=== PATIENT | male | born 1980 | race Caucasian/White ===

== ENCOUNTER 2017-06-11 18:10 | Observation (INO) | payer SELFPAY ==
[2017-06-11] VITALS (12 sets, daily range): BP systolic 129–172; BP diastolic 82–113; PULSE 56–109; RESP 10–28; TEMP 36.7–36.8; O2SAT 96–98; BMI 24.7; BMI 25.0; BMI 24.0
--- NOTE | 2017-06-11 16:36 | EKG12_ITS ---
Test Reason : Blood Pressure : / mmHG Vent. Rate : 094 BPM Atrial Rate : 094 BPM P-R Int : 128 ms QRS Dur : 088 ms QT Int : 362 ms P-R-T Axes : 062 261 053 degrees QTc Int : 452 ms Normal sinus rhythm Normal ECG Confirmed by NETO HERMOSILLO ([id number]), editor index [place]ON[place]QUE [place] ([id number]) on 06/14/2017 2:34:44 PM Referred By: MANDY Confirmed By:NETO HERMOSILLO
[2017-06-11] MEDS: Aspirin 81 MG TAB.CHEW 324 MG PO (16:40)
--- NOTE | 2017-06-11 16:40 | RAD_ITS ---
STUDY: X-RAY CHEST REASON FOR EXAM: Male, 37 years old. Chest pain. TECHNIQUE: Single AP portable view of the chest. COMPARISON: None. FINDINGS: Lungs are mildly hyperexpanded. There is no focal mass or infiltrate. There is no demonstrated pleural abnormality. Normal size heart. Normal mediastinum and mark. Normal visualized pulmonary arteries. Normal visualized aortic arch and descending thoracic aorta. The thoracic spine is obscured by the mediastinum. Normal visualized ribs, clavicles, and shoulders. There is no demonstrated abnormality of the visualized soft tissue structures of the upper abdomen. RAD/Chest 1 View (Portable) IMPRESSION: No acute cardiopulmonary disease. Electronically Signed: Ivan Thompson DO at 16:55 EDT Tel [phone], Service support ,
--- NOTE | 2017-06-11 17:07 | ED.RN ---
accidental 2nd account made
[2017-06-11 17:27] LABS: Absolute Lymphocyte Count 3.73 X10^3/ul (0.83-4.51); Absolute Neutrophil Count 5.8 X10^3/uL (2.0-7.7); Basophil# 0.03 X10^3/uL; Basophil% 0.3 % (0-1); Eosinophils% 0.9 % (0-5); Hematocrit 42.2 % (40-54); Hemoglobin 14.9 g/dl (13.0-16.5); Lymphocyte # 3.73 X10^3/ul (4.0); Mean Corp Hgb Conc 35.3 g/gl (32-36); Mean Corpuscular Hgb 34.3 pg (27.0-32.0); Mean Corpuscular Volume 97.2 fL (80-94); Mean Platelet Vol. 11.2 fl (6.2-12.0); Monocyte# 0.94 X10^3/uL; Monocyte% 8.8 % (0-10); Neutrophil # 5.83 X10^3/uL (2.7-7.7); Neutrophil % 54.8 % (47-70); Platelet Count 245 K/mm3 (150-450); RBC Distribution Width CV 13.1 % (11.6-14.6); RBC Distribution Width SD 45.9 fl (35.1-43.9); Red Blood Count 4.34 M/mm3 (4.6-6.2); White Blood Count 10.7 K/mm3 (4.4-11.0)
[2017-06-11 17:29] LABS: Anion Gap 10 (5-15); BUN 16 mg/dL (7-18); BUN/Creat Ratio 13.3 RATIO (10-20); Calcium,Total 8.7 mg/dL (8.5-10.1); Chloride 106 mmol/L (98-107); EST Glomerular Filtration Rate 73 mL/min (>60); Est Glom Filt Rate - Afr Amer 89 mL/min (>60); Estimated Creatinine Clearance 74.74 ml/min; Glucose 116 mg/dL (74-106); Potassium 3.4 mmol/L (3.5-5.1); Sodium Level 140 mmol/L (136-145)
[2017-06-11 17:43] LABS: POSITIVE COUNT NO; POSITIVE DIFFERENTIAL NO; POSITIVE MORPHOLOGY NO
--- NOTE | 2017-06-11 17:43 | ED.VISSUMM ---
- ER Visit Summary Date of Service: 06/11/17 Chief Complaint: Chest pressure with dyspnea and diaphoresis History of Present Illness: The patient is a 37 M for chest pressure yesterday after intercourse. The pressure lasted for approximately 1 hour. Was associated with dyspnea, nausea and diaphoresis. He had an episode today at work. He reports dyspnea on exertion for the past week. He has not had chest pain the past week. He presently is pain-free. He is a smoker. Father had [place] at the age of 49. He is on no medication. He denies fever, chills night sweats. He denies any ocular, visual or auditory symptoms. He denies any URI symptoms or H EENT symptoms. He denies cough, orthopnea or PND. Does complain of nausea otherwise GI is negative. He denies any urologic. He denies any neurologic symptoms. He denies leg pain, swelling discoloration or history of PE or DVT. He denies history of lack maroon stool. Physical Examination: Is an 37-year-old gentleman who appears in no obvious distress. As noted he is pain-free. Head is atraumatic normocephalic. Pupils are equal round reactive. Extraocular muscles are intact. TMs are pearly white with landmarks noted. Nares patent with no drainage. Posterior pharynx without erythema or exudate. Uvula is midline. There is no dysphonia or dysphasia. Trachea is midline. There is no stridor with auscultation of the neck. Heart is regular without murmur, gallop or rub. S1 and S2 are normal. Lungs are clear to auscultation with good movement of air bilaterally. Abdomen is soft and nontender. There is no guarding or peritoneal findings. There is no palpable pulsatile mass. There is no abdominal bruit. Dorsey sign is negative. Negative Rovsing sign. There is no evidence of inguinal or umbilical hernia. There is no asymmetry, swelling, discoloration, leg vein distention, palpable cords or tenderness along the distribution of the deep venous system. Neuro exam is nonfocal. Test Results: EKG was obtained per nurse protocol reveals a sinus rhythm rate of 97 and normal. Single view portable chest x-ray interpreted by me as negative for any acute pathology. BMP is my for glucose of 116. Troponin is less than 0.02. CBC is pending. Emergency Department Course and Treatment: Workup was undertaken to rule out cardiac etiology versus other etiology for patient's discomfort. Since he has exertional symptoms Dr. Palacios was contacted processing patient. He was treated with aspirin and nitroglycerin. Treatment Plan: Dr. Acosta to see, admit and evaluate as inpatient Disposition: 23 hour observation PCU Impression: Exertional chest pain History of tobacco use Elevated blood pressure in patient without hypertension This note was generated with ClickOn dictation software. It may contain incorrect words, spelling, and punctuation that were not noted in review of the chart prior to signing ED Disposition - Plan for ED Patient: Chief Complaint: Chest Pain Referrals: Care Physician,No Primary [Primary Care Provider] -
--- NOTE | 2017-06-11 18:13 | PCM.CONS.C ---
Reason for Consult Date of Consultation: 06/11/17 Reason for Consultation: Chest discomfort. History of Present Illness: The patient is a 37 year old M with no previous medical history who says that he experienced chest discomfort yesterday during an episode of intimate activity. He described his as a heaviness across his chest there was no radiation no nausea no diaphoresis no dizziness. He has not had any previous episodes similar to this and has not had exertional discomfort in the past. This was with an otherwise unfamiliar partner. Today he experienced similar discomfort got concerned and so came to the emergency room he was noted to be mildly hypertensive his EKG did not demonstrate any significant changes troponin was normal. The emergency room physician got concerned and so called me for possible evaluation and admission for unstable angina. He is currently chest pain-free. [] Past Medical History Allergies/Adverse Reactions: Allergies No Known Allergies Allergy (Verified 06/11/17 16:13) Home Medications: Ambulatory Orders Medication Instructions Recorded Albuterol IH (ProAir) [Proair Hfa 1 puff INHALATION PRN PRN 06/11/17 (SP)Vent Pts] Budesonide/Formoterol 160/4.5 2 puff INHALATION DAILY 06/11/17 [Symbicort 160/4.5 Mcg Inhaler (SP)] Surgical History: no surgical history - *Family History Paternal History Items: Heart Disease Smoking Status: Current every day smoker Alcohol: None Drugs: None Review of Systems - Review of Systems General: Denies: Fever, Night Sweats, Fatigue Cardiovascular: Reports: Chest Discomfort with Exertion, Shortness of Breath. Denies: Chest Discomfort, Orthopnea, PND, Peripheral Edema, Palpitations, Lightheadedness, Dizziness, Near Syncope, Syncope Respiratory: Denies: Cough, Sputum Production, Hemoptysis Gastrointestinal: Denies: Hematemesis, Hematochezia, Melena Genitourinary: Denies: Dysuria, Hematuria Skin: Denies: Rash Subjectve: Pleasant gentleman in no apparent distress. Objective: Vital Signs Temp Pulse Resp BP Pulse Ox 98.2 F 102 H 16 135/87 H 98 06/11/17 16:19 06/11/17 16:53 06/11/17 16:19 06/11/17 16:53 06/11/17 16:19 Oxygen Delivery Method Room Air Weight: 150 lb 2.157 oz Body Mass Index (BMI) 25.0 General: Awake, Alert, Oriented x 3 HEENT: PERRL, EOMI, Sclera Non Icteric Neck: Supple, Good ROM, No Lymph Node Enlargement Lungs: Clear to auscultation Cardiovascular: Regular Rhythm, Normal S1, Normal S2, No Murmurs, No Rubs, No Gallops Vascular: No Carotid Bruits, Normal Femoral Pulses, Normal Radial Pulses, Normal Dorsalis Pedal Pulse, Normal Posterior Tibial Pulses Abdomen: Bowel Sounds Present, Soft, Non Tender, No HSM, No Organomegaly Extremities: No Cyanosis, No Clubbing, No edema Neurological: No Focal Motor or Sensory Deficit 06/11/17 14:25: WBC 10.7, RBC 4.34 L, Hgb 14.9, Hct 42.2, MCV 97.2 H, MCH 34.3 H, MCHC 35.3, RDW 13.1, RDW Differential 45.9 H, Plt Count 245, MPV 11.2, Immature Gran % (Auto) 0.200, Neut % (Auto) 54.8, Lymph % (Auto) 35.0, Slope % (Auto) 8.8, Eos % (Auto) 0.9, Baso % (Auto) 0.3, Absolute Neuts (auto) 5.8, Total Counted Not Reportable 06/11/17 14:25: Sodium 140, Potassium 3.4 L, Chloride 106, Carbon Dioxide 24.0, Anion Gap 10, BUN 16, Creatinine 1.20, Est GFR (MDRD) Af Amer 89, Est GFR (MDRD) Non-Af 73, BUN/Creatinine Ratio 13.3, Glucose 116 H, Calcium 8.7, Troponin I < 0.02 Rhythm: EKG: Normal sinus rhythm with no acute changes Assessment/Plan 1. Exertional chest pain. He presents with chest discomfort with exertion. At this particular time he has no EKG changes and his cardiac enzymes are completely normal. My recommendation would be for him to continue observation on the telemetry unit serial cardiac enzymes will be obtained and an echocardiogram will also be obtained. Pending on the results of the blood work further recommendations will be made. If his cardiac enzymes are normal I would suggest we perform an exercise myocardial perfusion stress test and depending on the results further recommendations will be made. Thank you for allowing me to participate in the care of your patient. Please don't hesitate to call if any issues arise 2. Pre-hypertension. He appears to have pre-hypertension. My recommendation would be to him on lisinopril and monitor his blood pressure carefully. Further recommendations will be made depending on his response to the above. Thank you for allowing me to participate in the care of your patient. Please don't hesitate to call if any issues arise
--- NOTE | 2017-06-11 18:18 | CON.PCM_ITS ---
Reason for Consult Date of Consultation: 06/11/17 Reason for Consultation: Chest discomfort. History of Present Illness: The patient is a 37 year old M with no previous medical history who says that he experienced chest discomfort yesterday during an episode of intimate activity. He described his as a heaviness across his chest there was no radiation no nausea no diaphoresis no dizziness. He has not had any previous episodes similar to this and has not had exertional discomfort in the past. This was with an otherwise unfamiliar partner. Today he experienced similar discomfort got concerned and so came to the emergency room he was noted to be mildly hypertensive his EKG did not demonstrate any significant changes troponin was normal. The emergency room physician got concerned and so called me for possible evaluation and admission for unstable angina. He is currently chest pain-free. [] Past Medical History Allergies/Adverse Reactions: Allergies No Known Allergies Allergy (Verified 06/11/17 16:13) Home Medications: Ambulatory Orders Medication Instructions Recorded Albuterol IH (ProAir) [Proair Hfa 1 puff INHALATION PRN PRN 06/11/17 (SP)Vent Pts] Budesonide/Formoterol 160/4.5 2 puff INHALATION DAILY 06/11/17 [Symbicort 160/4.5 Mcg Inhaler (SP)] Surgical History: no surgical history - *Family History Paternal History Items: Heart Disease Smoking Status: Current every day smoker Alcohol: None Drugs: None Review of Systems - Review of Systems General: Denies: Fever, Night Sweats, Fatigue Cardiovascular: Reports: Chest Discomfort with Exertion, Shortness of Breath. Denies: Chest Discomfort, Orthopnea, PND, Peripheral Edema, Palpitations, Lightheadedness, Dizziness, Near Syncope, Syncope Respiratory: Denies: Cough, Sputum Production, Hemoptysis Gastrointestinal: Denies: Hematemesis, Hematochezia, Melena Genitourinary: Denies: Dysuria, Hematuria Skin: Denies: Rash Subjectve: Pleasant gentleman in no apparent distress. Objective: Vital Signs Temp Pulse Resp BP Pulse Ox 98.2 F 102 H 16 135/87 H 98 06/11/17 16:19 06/11/17 16:53 06/11/17 16:19 06/11/17 16:53 06/11/17 16:19 Oxygen Delivery Method Room Air Weight: 150 lb 2.157 oz Body Mass Index (BMI) 25.0 General: Awake, Alert, Oriented x 3 HEENT: PERRL, EOMI, Sclera Non Icteric Neck: Supple, Good ROM, No Lymph Node Enlargement Lungs: Clear to auscultation Cardiovascular: Regular Rhythm, Normal S1, Normal S2, No Murmurs, No Rubs, No Gallops Vascular: No Carotid Bruits, Normal Femoral Pulses, Normal Radial Pulses, Normal Dorsalis Pedal Pulse, Normal Posterior Tibial Pulses Abdomen: Bowel Sounds Present, Soft, Non Tender, No HSM, No Organomegaly Extremities: No Cyanosis, No Clubbing, No edema Neurological: No Focal Motor or Sensory Deficit 06/11/17 14:25: WBC 10.7, RBC 4.34 L, Hgb 14.9, Hct 42.2, MCV 97.2 H, MCH 34.3 H , MCHC 35.3, RDW 13.1, RDW Differential 45.9 H, Plt Count 245, MPV 11.2, Immature Gran % (Auto) 0.200, Neut % (Auto) 54.8, Lymph % (Auto) 35.0, [place] % ( Auto) 8.8, Eos % (Auto) 0.9, Baso % (Auto) 0.3, Absolute Neuts (auto) 5.8, Total Counted Not Reportable 06/11/17 14:25: Sodium 140, Potassium 3.4 L, Chloride 106, Carbon Dioxide 24.0, Anion Gap 10, BUN 16, Creatinine 1.20, Est GFR (MDRD) Af Amer 89, Est GFR (MDRD ) Non-Af 73, BUN/Creatinine Ratio 13.3, Glucose 116 H, Calcium 8.7, Troponin I < 0.02 Rhythm: EKG: Normal sinus rhythm with no acute changes Assessment/Plan 1. Exertional chest pain. He presents with chest discomfort with exertion. At this particular time he has no EKG changes and his cardiac enzymes are completely normal. My recommendation would be for him to continue observation on the telemetry unit serial cardiac enzymes will be obtained and an echocardiogram will also be obtained. Pending on the results of the blood work further recommendations will be made. If his cardiac enzymes are normal I would suggest we perform an exercise myocardial perfusion stress test and depending on the results further recommendations will be made. Thank you for allowing me to participate in the care of your patient. Please don't hesitate to call if any issues arise 2. Pre-hypertension. He appears to have pre-hypertension. My recommendation would be to him on lisinopril and monitor his blood pressure carefully. Further recommendations will be made depending on his response to the above. Thank you for allowing me to participate in the care of your patient. Please don't hesitate to call if any issues arise
[2017-06-11] MEDS: Clopidogrel Bisulfate 300 MG Tablet PO (21:22)
[2017-06-11] MEDS: Albuterol 2.5 MG/3 ML VIAL.NEB. INHALATION (23:01)
[2017-06-12 02:58] VITALS: PULSE 85
[2017-06-12 03:35] VITALS: BP 129/82; PULSE 61; RESP 16; TEMP 37.1; O2SAT 97
[2017-06-12 04:40] LABS: Absolute Lymphocyte Count 2.33 X10^3/ul (0.83-4.51); Absolute Neutrophil Count 4.7 X10^3/uL (2.0-7.7); Basophil# 0.02 X10^3/uL; Basophil% 0.2 % (0-1); Eosinophil# 0.09 X10^3/uL; Eosinophils% 1.1 % (0-5); Hematocrit 38.8 % (40-54); Hemoglobin 13.6 g/dl (13.0-16.5); Lymphocyte # 2.33 X10^3/ul (4.0); Lymphocyte % 29.1 % (19-41); Mean Corp Hgb Conc 35.1 g/gl (32-36); Mean Corpuscular Hgb 34.5 pg (27.0-32.0); Mean Corpuscular Volume 98.5 fL (80-94); Mean Platelet Vol. 10.8 fl (6.2-12.0); Monocyte# 0.86 X10^3/uL; Monocyte% 10.7 % (0-10); Neutrophil # 4.71 X10^3/uL (2.7-7.7); Neutrophil % 58.8 % (47-70); POSITIVE COUNT NO; POSITIVE DIFFERENTIAL NO; POSITIVE MORPHOLOGY NO; Platelet Count 208 K/mm3 (150-450); RBC Distribution Width SD 45.5 fl (35.1-43.9); Red Blood Count 3.94 M/mm3 (4.6-6.2)
[2017-06-12 04:41] LABS: Prothrombin Time (Protime)PT. 13.1 SECONDS (11.7-14.9)
[2017-06-12 04:42] LABS: Partial Thromboplast Time 24.5 Seconds (24.1-36.2)
[2017-06-12 05:31] LABS: Anion Gap 8 (5-15); BUN 12 mg/dL (7-18); Calcium,Total 8.5 mg/dL (8.5-10.1); Chloride 106 mmol/L (98-107); Cholesterol 167 mg/dL (200); Creatinine, Serum 0.92 mg/dL (0.70-1.30); EST Glomerular Filtration Rate 99 mL/min (>60); Est Glom Filt Rate - Afr Amer 120 mL/min (>60); Estimated Creatinine Clearance 97.49 ml/min; Glucose 103 mg/dL (74-106); High Density Lipoprotein 64 mg/dL; Sodium Level 140 mmol/L (136-145); Triglycerides 102 mg/dL; Very Low Density Lipoprotein 20 mg/dL (5-40)
--- NOTE | 2017-06-12 05:55 | EKG12_ITS ---
Test Reason : AM EKG Blood Pressure : / mmHG Vent. Rate : 063 BPM Atrial Rate : 063 BPM P-R Int : 134 ms QRS Dur : 092 ms QT Int : 440 ms P-R-T Axes : 063 -49 046 degrees QTc Int : 450 ms Normal sinus rhythm with sinus arrhythmia Abnormal ECG When compared with ECG of 11-JUN-2017 16:20, MANUAL COMPARISON REQUIRED, DATA IS UNCONFIRMED Confirmed by NETO HERMOSILLO ([id number]), index editor [place]ONIQUE [place] ([id number]) on 06/14/2017 3:11:06 PM Referred By: DR MICHAEL Confirmed By:NETO HERMOSILLO
[2017-06-12 06:08] VITALS: BP 129/79; PULSE 68; RESP 16; TEMP 37.2; O2SAT 96
[2017-06-12] MEDS: Lisinopril 5 MG Tablet PO (06:11)
[2017-06-12] MEDS: Aspirin E.C. 81 MG Tablet PO (06:11)
--- NOTE | 2017-06-12 08:58 | STRESSREP_ITS ---
Stress Test Report Exercise myocardial perfusion stress test. 37-year-old man with a history of chest pain. Stress protocol: Resting EKG demonstrates sinus bradycardia with a rate of 48 bpm normal intervals and noted resting blood pressure is 132/80 mmHg. The patient exercised according to the regular Jeremy protocol for total duration of 11 minutes completing 2 minutes into stage IV of the Jeremy protocol. The maximum heart rate attained was 166 bpm which was 89% maximum predicted heart rate the maximum workload attained was 13.4 metabolic equivalents. Patient maintained sinus rhythm throughout the recording. At rest there were no ST or T-wave changes noted suggest ischemia peak exercise upsloping ST changes only were noted with no meet the criteria for ischemia. No clinical angina was noted. The test was terminated due to leg fatigue. The resting blood pressure is 132/ 80 with a peak blood pressure 140/80 mmHg. Myocardial perfusion protocol. 11.6 mCi of technetium 99m sestamibi was injected at rest. The patient exercised according to regular Jeremy protocol for total duration of 11 minutes. At peak exercise 33.1 mCi of technetium 99m sestamibi was injected. Stress images were obtained stress and rest images were reconstructed and compared in the short axis vertical long and horizontal long axis. Gated images were also obtained. Perfusion SPECT analysis: Review of the stress images demonstrate normal uptake of tracer noted in all areas of the myocardium. The resting images similarly demonstrate normal uptake of tracer noted in all areas of the myocardium. No areas of reversibility are noted suggest ischemia no previous infarct is noted. Gated SPECT analysis: The gated ejection fraction is 78%. Conclusion: Normal exercise myocardial perfusion stress test at a high workload with no evidence of angina or ischemia. Preserved ejection fraction.
--- NOTE | 2017-06-12 09:03 | PN.CARD_ITS ---
Subjectve: Patient seen and evaluated. Had no issues overnight. Objective: Vital Signs Temp Pulse Resp BP Pulse Ox 98.9 F 68 16 129/79 H 96 06/12/17 06:08 06/12/17 06:08 06/12/17 06:08 06/12/17 06:08 06/12/17 06:08 Oxygen Flow Rate (L/min) 2 Oxygen Delivery Method Room Air Weight: 144 lb 2.917 oz Body Mass Index (BMI) 24.0 Intake and Output for Last 24 Hours 06/10/17 06/11/17 06/12/17 23:59 23:59 23:59 Intake Total 462 / 462 Balance 462 / 462 General: Awake, Alert, Oriented x 3 HEENT: PERRL, EOMI, Sclera Non Icteric Neck: Supple, Good ROM, No Lymph Node Enlargement Lungs: Clear to auscultation Cardiovascular: Regular Rhythm, Normal S1, Normal S2, No Murmurs, No Rubs, No Gallops Vascular: No Carotid Bruits, Normal Femoral Pulses, Normal Radial Pulses, Normal Dorsalis Pedal Pulse, Normal Posterior Tibial Pulses Abdomen: Bowel Sounds Present, Soft, Non Tender, No HSM, No Organomegaly Extremities: No Cyanosis, No Clubbing, No edema Neurological: No Focal Motor or Sensory Deficit 06/11/17 19:15: Troponin I < 0.02 06/11/17 22:56: Troponin I < 0.02 06/12/17 04:20: Sodium 140, Potassium 4.0, Chloride 106, Carbon Dioxide 26.0, Anion Gap 8, BUN 12, Creatinine 0.92, Est GFR (MDRD) Af Amer 120, Est GFR (MDRD ) Non-Af 99, BUN/Creatinine Ratio 13.0, Glucose 103, Calcium 8.5, Triglycerides 102, Cholesterol 167, LDL Cholesterol 83, VLDL Cholesterol 20, HDL Cholesterol 64 06/12/17 04:20: Troponin I < 0.02 06/12/17 04:20: WBC 8.0, RBC 3.94 L, Hgb 13.6, Hct 38.8 L, MCV 98.5 H, MCH 34.5 H, MCHC 35.1, RDW 13.0, RDW Differential 45.5 H, Plt Count 208, MPV 10.8, Immature Gran % (Auto) 0.100, Neut % (Auto) 58.8, Lymph % (Auto) 29.1, [place] % ( Auto) 10.7 H, Eos % (Auto) 1.1, Baso % (Auto) 0.2, Absolute Neuts (auto) 4.7, Total Counted Not Reportable 06/12/17 04:20: PT 13.1, INR 1.0, APTT 24.5 Rhythm: EKG: ECHO: Stress Test: Cardiac Cath: PCI: CT Surgery: Holter monitor: EPS: PPM: CXR: Chest CT Scan: Medical Necessity - Tobacco Use Smoking Status: Current every day smoker Assessment/Plan 1. Exertional chest pain. He presents with chest discomfort with exertion. He underwent stress testing this morning where he exercised 11 minutes without any evidence of chest pain. Nuclear images also did not demonstrate any evidence of ischemia. This portends a very low likelihood for coronary artery disease. My recommendation will be for him to be managed as an outpatient. 2. Pre-hypertension. He appears to have pre-hypertension. My recommendation would be to him on lisinopril and monitor his blood pressure carefully. Further recommendations will be made depending on his response to the above. Thank you for allowing me to participate in the care of your patient. Please don't hesitate to call if any issues arise. He will follow-up with his primary physician.
--- NOTE | 2017-06-12 09:03 | PCM.DC ---
You will use the following diet at home:: No restrictions Discharge Activity: Return to Normal Activity Return to work on:: 06/13/17 May resume sexual activity in: 1 week Allergies/Adverse Reactions: Allergies No Known Allergies Allergy (Verified 06/11/17 16:13) Medications to take at Discharge Albuterol IH (ProAir) [Proair Hfa (SP)Vent Pts] 1 puff INHALATION PRN PRN 06/11/17 Budesonide/Formoterol 160/4.5 [Symbicort 160/4.5 Mcg Inhaler (SP)] 1 puff INHALATION DAILY 06/11/17 Primary Care Physician: Care Physician,No Primary [Primary Care Provider] - Please Follow Up With: primary care for bp evaluation Proposed Discharge Date: 06/12/17
--- NOTE | 2017-06-12 09:06 | DCINST_ITS ---
You will use the following diet at home:: No restrictions Discharge Activity: Return to Normal Activity Return to work on:: 06/13/17 May resume sexual activity in: 1 week Allergies/Adverse Reactions: Allergies No Known Allergies Allergy (Verified 06/11/17 16:13) Medications to take at Discharge Albuterol IH (ProAir) [Proair Hfa (SP)Vent Pts] 1 puff INHALATION PRN PRN Budesonide/Formoterol 160/4.5 [Symbicort 160/4.5 Mcg Inhaler (SP)] 1 puff INHALATION DAILY 06/11/17 Primary Care Physician: Care Physician,No Primary [Primary Care Provider] - Please Follow Up With: primary care for bp evaluation Proposed Discharge Date: 06/12/17
[2017-06-12 10:06] VITALS: BP 120/72; PULSE 64; TEMP 36.8; O2SAT 97
--- NOTE | 2017-06-12 10:34 | CASEMGMT ---
Patient is self pay. SYBIL met with patient, introduced self and role at [facility]. Patient said he used to go to [facility]. SW gave him a packet for [employer], information on [facility]'s financial assistance program and application, information on [employer], prescription assistance programs for the 2 inhalers he is usually on, and a Medicaid application. Stacy HAMPTON MSW
== END 2017-06-12 09:04 | disposition home or self-care (01) ==
LOC: PCU 18:17
PROVIDERS: Admitting Provider Internal Medicine Cardiovascular Disease; Emergency Provider Emergency Medicine; Visit Provider Internal Medicine Cardiovascular Disease
DX: R07.89 Other chest pain (principal); R03.0 Elevated blood-pressure reading, without diagnosis of hypertension; R06.09 Other forms of dyspnea; F17.200 Nicotine dependence, unspecified, uncomplicated; Z79.51 Long term (current) use of inhaled steroids; R00.1 Bradycardia, unspecified
CPT/HCPCS: 36415; 71045; 78452; 80048; 80061; 84484; 85025; 85610; 85730; 93005; 93017; 94640; 99218; 99285; A9500; A4216; G0378

== ENCOUNTER 2017-12-13 14:05 | Emergency (ER) | payer SELFPAY ==
[2017-12-13 14:07] VITALS: BP 167/104; PULSE 105; RESP 18; TEMP 36.9; O2SAT 97; BMI 23.8
--- NOTE | 2017-12-13 14:43 | EKG12_ITS ---
Test Reason : ANXIETY Blood Pressure : / mmHG Vent. Rate : 087 BPM Atrial Rate : 087 BPM P-R Int : 140 ms QRS Dur : 084 ms QT Int : 368 ms P-R-T Axes : 040 -70 037 degrees QTc Int : 442 ms Normal sinus rhythm Left anterior fascicular block Abnormal ECG Confirmed by ALEC OWEN, WAYNE ([id number]), fan mail editor [place]ON[place] ([id number]) on 12/19/2017 9:12:55 AM Referred By: YURI Confirmed By:WAYNE MICHAEL MD
--- NOTE | 2017-12-13 15:00 | RAD_ITS ---
STUDY: X-RAY CHEST REASON FOR EXAM: Male, 37 years old. Cough. TECHNIQUE: PA and lateral views of the chest. COMPARISON: Comparison is made with prior study dated June 11, 2017. FINDINGS: Hyperinflation. Decreased bronchovascular markings in both lungs suggestive of a emphysematous changes. There is no demonstrated pleural abnormality. Normal size heart. Normal mediastinum and mark. Normal visualized pulmonary arteries. Normal visualized aortic arch and descending thoracic aorta. Normal visualized thoracic spine. Normal visualized ribs, clavicles, and shoulders. There is no demonstrated abnormality of the visualized soft tissue structures of the upper abdomen. RAD/Chest PA and Lateral IMPRESSION: Hyperinflation. Electronically Signed: Joe Boston MD at 15:31 EDT Tel [phone], Service support ,
[2017-12-13 15:08] LABS: Absolute Lymphocyte Count 2.49 X10^3/ul (0.83-4.51); Absolute Neutrophil Count 5.2 X10^3/uL (2.0-7.7); Basophil# 0.02 X10^3/uL; Basophil% 0.2 % (0-1); Eosinophil# 0.15 X10^3/uL; Eosinophils% 1.8 % (0-5); Hemoglobin 14.8 g/dl (13.0-16.5); Lymphocyte # 2.49 X10^3/ul (4.0); Lymphocyte % 29.2 % (19-41); Mean Corp Hgb Conc 34.4 g/gl (32-36); Mean Corpuscular Hgb 33.9 pg (27.0-32.0); Mean Corpuscular Volume 98.6 fL (80-94); Mean Platelet Vol. 10.2 fl (6.2-12.0); Monocyte# 0.67 X10^3/uL; Monocyte% 7.9 % (0-10); Neutrophil # 5.17 X10^3/uL (2.7-7.7); Neutrophil % 60.5 % (47-70); POSITIVE COUNT NO; POSITIVE DIFFERENTIAL NO; POSITIVE MORPHOLOGY NO; Platelet Count 192 K/mm3 (150-450); RBC Distribution Width CV 13.2 % (11.6-14.6); RBC Distribution Width SD 47.6 fl (35.1-43.9); Red Blood Count 4.36 M/mm3 (4.6-6.2); White Blood Count 8.5 K/mm3 (4.4-11.0)
[2017-12-13 15:21] LABS: Anion Gap 10 (5-15); BUN 12 mg/dL (7-18); BUN/Creat Ratio 10.9 RATIO (10-20); Calcium,Total 9.1 mg/dL (8.5-10.1); Chloride 103 mmol/L (98-107); EST Glomerular Filtration Rate 81 mL/min (>60); Est Glom Filt Rate - Afr Amer 98 mL/min (>60); Estimated Creatinine Clearance 81.53 ml/min; Glucose 121 mg/dL (74-106); Sodium Level 136 mmol/L (136-145)
[2017-12-13 15:24] VITALS: PULSE 88; RESP 16; O2SAT 98
--- NOTE | 2017-12-13 16:30 | ED.DCSUM_ITS ---
- ER Visit Summary Date of Service: 12/13/17 Chief Complaint: [Medication side effects, diarrhea] History of Present Illness: The patient is a 37 M [the presents with multiple complaints including diarrhea, chest pains, and anxiety. Patient is concerned that these symptoms are due to the fact that he was recently changed from Zoloft to BuSpar about 3 weeks ago. He did not like how the BuSpar made him feel so he started decreasing the dosage over the last week. He is only taking about half the prescribed dosage. He had some sharp pains on the left side of his chest several days ago that resolved and have not recurred. He also describes nonproductive cough and several loose stools. No DVT or PE history or risk factors. No cardiac history. His only cardiac risk factor is hypertension. He appears well and nontoxic. He has no other complaints.] Physical Examination: [General: The patient appears well and in no apparent distress. Patient is resting comfortably on cart. Skin: Warm, dry, no pallor noted. No rash. Head: Normocephalic, atraumatic Neck: Supple, nontender. Eye: PERRLA, EOMI ENT: Moist mucus membranes, pharynx within normal limits. Cardiovascular: Regular Rate and Rhythm, no gallups or rubs Respiratory: Patient is in no distress, no accessory muscle use, lungs are clear to auscultation, no wheezing, rales or rhonchi Musculoskeletal: normal ROM, no deformity, no tenderness, no swelling. 2+ radial and DP pulses symmetric. GI: No tenderness to palpation, no masses appreciated. No rebound, guarding, or rigidity noted. Neurological: A&O, normal strength and sensation. GCS 15. Psychiatric: Cooperative] Test Results: [Bloodwork overall unremarkable. EKG shows sinus rhythm with a rate of 87, no acute ischemic changes or arrhythmia. Normal intervals. No heart blocks. Two-view chest x-ray shows no acute process. ] Emergency Department Course and Treatment: [Patient remained stable throughout his stay in the emergency department. He is currently asymptomatic. EKG and chest x-ray showed no acute findings. Cardiac enzymes were negative, no evidence of cardiac etiology of his symptoms. His HEART Score is 1. He is PERC negative. I do not feel his presentation is consistent with ACS, PE, or dissection. He was advised to follow closely with his primary provider and return with any new or worsening symptoms. I instructed him to take his medications as prescribed and discuss the dosing with his primary provider. Patient verbalized understanding and is agreeable. Patient discharged home in stable condition.] Treatment Plan: [see above] Disposition: [discharge home] Impression: [Chest Pain, nonspecific - resolved, Diarrhea, Possible medication side effects] This note was generated with [employer] dictation software. It may contain incorrect words, spelling, and punctuation that were not noted in review of the chart prior to signing ED Disposition - Plan for ED Patient: Disposition: Home or Assisted Living Chief Complaint: General Illness Instructions: ED Chest Pain Atypical Unkn Cause Referrals: Esther Toro, [employer] [Primary Care Provider] -
[2017-12-13 16:46] VITALS: BP 132/77; PULSE 61; RESP 15; O2SAT 97
== END 2017-12-13 16:47 | disposition home or self-care (01) ==
PROVIDERS: Emergency Provider Emergency Medicine; Family Provider Nurse Practitioner Family; PCP Nurse Practitioner Family
DX: R07.9 Chest pain, unspecified (principal); R19.7 Diarrhea, unspecified; F41.9 Anxiety disorder, unspecified; Z79.899 Other long term (current) drug therapy
CPT/HCPCS: 71046; 80048; 84484; 85025; 93005; 99284

== ENCOUNTER 2018-01-10 15:29 | Emergency (ER) | payer SELFPAY ==
[2018-01-10 15:30] VITALS: BP 162/106; PULSE 90; RESP 18; TEMP 36.6; O2SAT 99; BMI 24.9
[2018-01-10 15:44] VITALS: O2SAT 98
--- NOTE | 2018-01-10 15:44 | EKG12_ITS ---
Test Reason : CP Blood Pressure : / mmHG Vent. Rate : 084 BPM Atrial Rate : 084 BPM P-R Int : 138 ms QRS Dur : 086 ms QT Int : 364 ms P-R-T Axes : 044 268 039 degrees QTc Int : 430 ms Normal sinus rhythm Low voltage QRS (limb leads) Confirmed by JULIETA OWEN, KIKI ([id number]), newspaper editor managing MELINA MONAHAN ([id number]) on 01/14/2018 12:42:18 PM Referred By: MERCEDES Confirmed By:KIKI RENDON MD
--- NOTE | 2018-01-10 15:45 | RAD_ITS ---
STUDY: X-RAY CHEST REASON FOR EXAM: Male, 37 years old. Chest pain TECHNIQUE: Portable upright chest COMPARISON: 12/13/2017 x-ray chest. FINDINGS: The lungs are clear and expanded. Normal cardiomediastinal silhouette, mark and pleural margins. No acute osseous or upper abdominal process. RAD/Chest 1 View (Portable) IMPRESSION: No acute cardiopulmonary process. Electronically Signed: Bogdan Frey, at 16:10 EDT Tel , Service support ,
[2018-01-10 16:09] LABS: Absolute Lymphocyte Count 2.27 X10^3/ul (0.83-4.51); Absolute Neutrophil Count 5.9 X10^3/uL (2.0-7.7); Basophil# 0.02 X10^3/uL; Basophil% 0.2 % (0-1); Eosinophil# 0.09 X10^3/uL; Hematocrit 42.6 % (40-54); Hemoglobin 14.8 g/dl (13.0-16.5); Lymphocyte # 2.27 X10^3/ul (4.0); Mean Corp Hgb Conc 34.7 g/gl (32-36); Mean Corpuscular Volume 100.7 fL (80-94); Mean Platelet Vol. 10.9 fl (6.2-12.0); Monocyte# 0.84 X10^3/uL; Monocyte% 9.2 % (0-10); Neutrophil # 5.85 X10^3/uL (2.7-7.7); Neutrophil % 64.4 % (47-70); POSITIVE COUNT NO; POSITIVE DIFFERENTIAL NO; POSITIVE MORPHOLOGY NO; Platelet Count 209 K/mm3 (150-450); RBC Distribution Width CV 12.8 % (11.6-14.6); RBC Distribution Width SD 46.4 fl (35.1-43.9); Red Blood Count 4.23 M/mm3 (4.6-6.2); White Blood Count 9.1 K/mm3 (4.4-11.0)
[2018-01-10 16:13] LABS: Anion Gap 7 (5-15); BUN 13 mg/dL (7-18); BUN/Creat Ratio 12.5 RATIO (10-20); Calcium,Total 9.5 mg/dL (8.5-10.1); Chloride 103 mmol/L (98-107); Creatinine, Serum 1.04 mg/dL (0.70-1.30); EST Glomerular Filtration Rate 86 mL/min (>60); Est Glom Filt Rate - Afr Amer 104 mL/min (>60); Estimated Creatinine Clearance 83.01 ml/min; Glucose 119 mg/dL (74-106); Potassium 4.2 mmol/L (3.5-5.1); Sodium Level 136 mmol/L (136-145)
--- NOTE | 2018-01-10 16:25 | ED.VISSUMM ---
- ER Visit Summary Date of Service: 01/10/18 Chief Complaint: [] Chest pain since early this morning History of Present Illness: The patient is a 37 M [] reports history of chest discomfort since earlier this morning he woke with it. He has no history of [place] PE DVT he does have a history of asthma and hypertension smoker has a family history for CAD. He did not exert himself or do anything to Inc. initiate the pain the pain is not exertional he is eating well drinking well bowel bladder habits normal. He was at work today and the symptoms persisted he came in for evaluation. At this time the pain is resolved without specific therapy Physical Examination: [] Vital signs are within normal range general, no distress resting comfortably HEENT is generally unremarkable The neck is supple no adenopathy Cardiovascular, regular rate and rhythm Lungs, clear bilateral Abdomen, soft nontender Extremities, no clubbing cyanosis or edema Neurologic, awake alert answering questions appropriately moving all 4 extremities Test Results: [] Emergency Department Course and Treatment: [] His EKG shows nothing acute his labs troponin chest x-ray are unremarkable, again has been having pain since earlier this morning at least 8 hours, we discussed management with him, we discussed repeating his EKG troponin, we discussed admission versus outpatient management, he indicated he has financial concerns he does not wish to be admitted, he does not wish to have repeat studies, he understands the concept of chest pain can be from heart disease which could be life-threatening is family was in the room with him his cousin we had a long conversation with him at this time he would prefer to go home and be managed as an outpatient be given the number to cardiology and he will return for change in symptoms and take an aspirin every day until he seen Treatment Plan: [] Disposition: [] Home stable declined admission Impression: [] Chest pain resolved etiology unclear This note was generated with [employer] dictation software. It may contain incorrect words, spelling, and punctuation that were not noted in review of the chart prior to signing ED Disposition - Plan for ED Patient: Chief Complaint: Chest Pain Referrals: Esther Toro, [employer] [Primary Care Provider] -
--- NOTE | 2018-01-10 16:28 | ED.DCSUM_ITS ---
- ER Visit Summary Date of Service: 01/10/18 Chief Complaint: [] Chest pain since early this morning History of Present Illness: The patient is a 37 M [] reports history of chest discomfort since earlier this morning he woke with it. He has no history of [place] PE DVT he does have a history of asthma and hypertension smoker has a family history for CAD. He did not exert himself or do anything to Inc. initiate the pain the pain is not exertional he is eating well drinking well bowel bladder habits normal. He was at work today and the symptoms persisted he came in for evaluation. At this time the pain is resolved without specific therapy Physical Examination: [] Vital signs are within normal range general, no distress resting comfortably HEENT is generally unremarkable The neck is supple no adenopathy Cardiovascular, regular rate and rhythm Lungs, clear bilateral Abdomen, soft nontender Extremities, no clubbing cyanosis or edema Neurologic, awake alert answering questions appropriately moving all 4 extremities Test Results: [] Emergency Department Course and Treatment: [] His EKG shows nothing acute his labs troponin chest x-ray are unremarkable, again has been having pain since earlier this morning at least 8 hours, we discussed management with him, we discussed repeating his EKG troponin, we discussed admission versus outpatient management, he indicated he has financial concerns he does not wish to be admitted, he does not wish to have repeat studies, he understands the concept of chest pain can be from heart disease which could be life-threatening is family was in the room with him his cousin we had a long conversation with him at this time he would prefer to go home and be managed as an outpatient be given the number to cardiology and he will return for change in symptoms and take an asp irin every day until he seen Treatment Plan: [] Disposition: [] Home stable declined admission Impression: [] Chest pain resolved etiology unclear This note was generated with [employer] dictation software. It may contain incorrect words, spelling, and punctuation that were not noted in review of the chart prior to signing ED Disposition - Plan for ED Patient: Chief Complaint: Chest Pain Referrals: Esther Toro, [employer] [Primary Care Provider] -
--- NOTE | 2018-01-10 16:28 | ED.DEP ---
ED Disposition - Plan for ED Patient: Chief Complaint: Chest Pain Instructions: ED Chest Pain Atypical Unkn Cause Referrals: Esther Toro, DARRYL-C [Primary Care Provider] - Sean Figueredo MD [STAFF PHYSICIAN] - Additional Instructions: Please take an adult strength aspirin every day, follow-up with cardiology return for change in symptoms
[2018-01-10] MEDS: Aspirin 81 MG TAB.CHEW 324 MG PO (16:53)
[2018-01-10] MEDS: Ondansetron 4 MG/2 ML Vial IV (16:53)
[2018-01-10] MEDS: morphine 8 MG/ML Syringe IV (16:53)
[2018-01-10 16:59] VITALS: BP 145/109; PULSE 89; RESP 16; O2SAT 96
[2018-01-10 17:07] VITALS: BP 135/102; PULSE 78; PULSE 79; RESP 16; O2SAT 94
== END 2018-01-10 17:10 | disposition home or self-care (01) ==
LOC: ED 16:26
PROVIDERS: Emergency Provider Emergency Medicine; Family Provider Nurse Practitioner Family; PCP Nurse Practitioner Family
DX: R07.9 Chest pain, unspecified (principal); F17.200 Nicotine dependence, unspecified, uncomplicated
CPT/HCPCS: 71045; 80048; 84484; 85025; 93005; 96374; 96375; 99284; A4216; J2405

== ENCOUNTER → 2021-07-29 | Outpatient (CLI) | payer MEDICAID, SELFPAY ==
[2021-07-29 11:17] LABS: AST(SGOT) 79 U/L (15-37); Alanine Aminotransfer ALT/SGPT 80 U/L (16-61); Albumin, Serum 3.7 g/dL (3.2-5.0); Alkaline Phosphatase 77 U/L (45-117); Bilirubin, Direct 0.26 mg/dL (0.00-0.30); Globulin 4.5 g/dL (2.2-4.2); Protein, Total 8.2 g/dL (6.4-8.2)
[2021-07-29 11:24] LABS: Hemoglobin A1c 5.5 % (3.8-5.6)
== END | disposition home or self-care (01) ==
LOC: LAB 10:24
DX: R94.5 Abnormal results of liver function studies (principal); R73.09 Other abnormal glucose
CPT/HCPCS: 36415; 80076; 83036